=== PATIENT | female | born 1935 | race Caucasian/White ===

== ENCOUNTER → 2023-12-15 18:27 | Outpatient (REF) | payer OTHER, SELFPAY | LOC: MRI 18:27 | PROVIDERS: ATTENDING PHYSICIAN Pain Medicine Interventional Pain Medicine; FAMILY PHYSICIAN Family Medicine | DX: M54.16 Radiculopathy, lumbar region (principal) | CPT/HCPCS: 72148 ==

== ENCOUNTER → 2023-12-22 12:05 | Outpatient (REF) | payer OTHER, SELFPAY | LOC: RCS 12:05 | PROVIDERS: ATTENDING PHYSICIAN Pain Medicine Interventional Pain Medicine; FAMILY PHYSICIAN Family Medicine | DX: I48.0 Paroxysmal atrial fibrillation (principal) | CPT/HCPCS: 93005 ==

== ENCOUNTER 2024-05-07 18:11 | Inpatient (IN) | payer OTHER, SELFPAY ==
[2024-05-07] VITALS (12 sets, daily range): BP systolic 105–123; BP diastolic 44–72; BMI 27.9; BMI 26.9
--- NOTE | 2024-05-07 15:44 | ED.GENMED ---
History of Present Illness
General
Chief Complaint: Abnormal Lab Value
Time Seen by Provider: 05/07/24 15:06
History of Present Illness
History of Present Illness:
88-year-old female with history of A-fib on Coumadin, CHF, anemia on iron presenting to the emergency department for anemia. Patient had outpatient laboratory analysis, reportedly a hemoglobin of 5.5. Patient is an extremely limited historian
secondary to difficulty hearing. She does note some dyspnea, however unclear whether or not she has ever been transfused in the past. She denies any known blood in her stool. No additional history obtained at this time.
Past History
Past History
ED Past Medical History: Arrthythmia, HTN and Hypercholesterolemia
ED Past Surgical History: Orthopedic
Social History
Tobacco: Non-smoker
Alcohol: None
Personal:
Living: with family
Phy Exam
Physical Exam
Physical Exam:
General: Well-appearing, no clinical signs of dehydration, nontoxic and in no acute distress
HEENT: protecting airway
Neck: appears supple
CV: Normal heart rate, regular rhythm
Resp: No accessory muscle use, no increased work of breathing, lungs clear to auscultation bilaterally
Abd: Soft and non-distended, no tenderness to palpation
Extremities: No deformities, no swelling, no erythema, pulses and sensation intact
Neuro: alert, no focal neurologic deficit
: deferred
Rectal: Hemoccult positive dark stool
Psych: Normal affect
Skin: Intact
Course
Orders/Labs/Results
Orders:
Orders
05/07/24 15:22
Type+Screen Urgent
Complete Blood Count/With Diff Urgent
Comprehensive Metabolic Panel Urgent
05/07/24 15:24
PT/INR [Prothrombin Time] Urgent
05/07/24 16:11
* Blood Bank Products Urgent
Blood Bank Products: *Packed RBC Leuko(PRBC's)
Quantity: 1
Transfuse Today: Yes
Reason: Anemia
Other reason: bleeding
05/07/24 17:51
Admit/Transfer Patient As Directed
Co-Sign Provider:
Level of Care: Inpatient admission
Assign to:: Telemetry
Physician / Group: jermaine
Diagnosis: GI bleed
Reason for Telemetry: Arrhythmia
Date to Stop Telemetry: 05/10/24
Time to Stop Telemetry: 11:00
Reason for Hospitalization: Gi bleed
Expected length of stay greater than two midnights?: Yes
ELOS- Estimated Length of Stay in days: 3
I certify the patient meets the requirements for IP care: Yes
05/07/24 17:52
PRN Pain Medication Management As Directed
May give lesser potent ordered pain med per pt: Yes
preference::
Protocol:: Medication orders for pain may be administered in a
manner that supports deferring to patient preference
when the pt is:
- Requesting an ordered lesser potent pain medication.
Least to most potent pain medications are defined
as: acetaminophen < NSAID < tramadol < opioids
(morphine, oxycodone, hydromorphone).
- Requesting a lesser dose of the same medication IF
ORDERED.
- Requesting a less intrusive route of administration
if both routes are prescribed by the provider (PO <
IV).
05/07/24 17:53
Code Status As Directed
Resuscitation Status: Do not resuscitate
Reached after discussion with pt or family/Healthcare POA: Yes
05/07/24 17:54
DNR Bracelet Application ONCE
05/07/24 19:20
Ondansetron HCl [Zofran] 4 mg PO DAILYPRN PRN
05/07/24 20:19
Donepezil HCl [Aricept] 10 mg PO QPM
Ferrous Sulfate [Feosol] 325 mg PO QPM
Oxycodone [Roxicodone] 10 mg PO Q6HPRN PRN
Pantoprazole [Protonix IV] 40 mg IV DAILY
Potassium Chloride [KCl] 20 meq PO BID
05/07/24 20:19
Activity As Directed
Activity Level: As Tolerated
INT (Intravenous Needle Therapy) As Directed
Comment: Place 2 IV catheters of the largest bore possible until stable
Orthostatic Vital Signs As Directed
Orthostatic VS Frequency: Now
Comment: then every four hours for twenty-four hours
Pneumatic Compression Sleeves As Directed
Type: Thigh high
Vital Signs As Directed
Frequency: Per unit guidelines
DX Deep Vein Thrombosis Video Routine
05/07/24 21:00
Atorvastatin [Lipitor] 20 mg PO QPM
Furosemide [Lasix] 20 mg IV ONCE@2100 ONE
05/07/24 22:00
Acetaminophen [Tylenol] 1,000 mg PO TID
05/08/24 06:00
Basic Metabolic Panel IN AM
Complete Blood Count/No Diff IN AM
PT/INR [Prothrombin Time] IN AM
Levothyroxine [Synthroid] 125 mcg PO DAILY @ 0600
Occupational Therapy Consult [Ot Eval And Treat] IN AM
Physical Therapy Consult [Pt Eval And Treat] IN AM
Activity Level: As Tolerated
05/08/24 08:00
Diltiazem Extended Release [Cardizem Cd] 180 mg PO DAILY
Escitalopram Oxalate [Lexapro] 20 mg PO DAILY
Furosemide [Lasix] 20 mg PO DAILY
Metoprolol Xl [Toprol Xl] 25 mg PO DAILY
05/09/24 06:00
Basic Metabolic Panel IN AM
Complete Blood Count/No Diff IN AM
PT/INR [Prothrombin Time] IN AM
05/10/24 06:00
Basic Metabolic Panel IN AM
Complete Blood Count/No Diff IN AM
PT/INR [Prothrombin Time] IN AM
05/10/24 11:00
DC Protocol for Telemetry ONCE
05/11/24 06:00
Basic Metabolic Panel IN AM
Complete Blood Count/No Diff IN AM
PT/INR [Prothrombin Time] IN AM
05/12/24 06:00
Basic Metabolic Panel IN AM
Complete Blood Count/No Diff IN AM
PT/INR [Prothrombin Time] IN AM
Abnormal Lab Results
05/07/24 05/07/24
15:22 15:24
RBC 1.75 L 10^6/uL
(4.20-5.40)
Hgb 5.6 L* g/dL
(12.0-16.0)
Hct 18.2 L* %
(37.0-47.0)
MCV 104.0 H fL
(81.0-99.0)
MCH 32.0 H pg
(27.0-31.0)
MCHC 30.8 L g/dL
(33.0-37.0)
RDW 15.4 H %
(11.5-14.5)
Plt Count 112 L 10^3/uL
(130-400)
MPV 11.4 H fL
(7.4-10.4)
Absolute Lymphs (auto) 0.5 L 10^3/uL
(1.2-3.4)
Neutrophils % 84.0 H %
(42.2-75.2)
Lymphocytes % 9.8 L %
(20.5-51.1)
PT 35.8 H Sec
(11.4-14.6)
BUN 29 H mg/dl
(7-17)
Creatinine 1.2 H mg/dL
(0.6-1.0)
Glucose 168 H mg/dl
(70-99)
Total Protein 5.7 L g/dl
(6.3-8.2)
Crossmatch IS Only See Detail
05/07/24 15:22
05/07/24 15:22
Vital Signs
Initial and Last Documented VS:
Initial Vital Signs
Temp Pulse Resp BP Pulse Ox
98.9 F 71 18 107/44 100
05/07/24 15:03 05/07/24 15:03 05/07/24 15:03 05/07/24 15:03 05/07/24 15:03
Last Documented Vital Signs
Temp Pulse Resp BP Pulse Ox
98.5 F 74 18 113/57 100
05/07/24 22:49 05/07/24 22:49 05/07/24 22:49 05/07/24 22:49 05/07/24 22:49
MDM/Problems Addressed
MDM/Problems Addressed:
88-year-old female with history of anemia on anticoagulation on Coumadin presenting for outpatient hemoglobin of 5.5. Vital signs on arrival are normal.
On exam, patient is well-appearing, no acute distress. Benign cardiac, pulmonary, abdominal exam. However, on rectal exam, Hemoccult positive, dark stool. Concern for GI bleed. Will repeat laboratory analysis and assess need for transfusion with
suspected source of blood loss GI. Patient at this time however is hemodynamically stable.
16:50 - Patient's hemoglobin is 5.6. Will consent for blood and plan for transfusion as well as admission.
*Critical Care Note
Total Time (30-74mins, 75-104mins- exclusive of procedures): 36
comment:
The high probability of a clinically significant, sudden or life threatening deterioration, severe anemia with GI bleed, required my full and direct attention, intervention and personal management. The aggregate critical care time was 36 minutes.
This time is in addition to time spent performing reported procedures but includes the following:
[x] Data Review and interpretation
[x] Patient assessment and monitoring of vital signs
[x] Documentation
[x] Medication orders and management
ED Attending Note
-
Portions of this chart may have been created with voice recognition software.� Occasional wrong word or��sound alike� substitutions may have occurred due to the inherent limitations of voice recognition software.
Discharge Plan
Departure
Patient Disposition: Admit
Date of Disposition: 05/07/24
Time of Disposition: 16:24
Presentation/result/management discussed w/ accepting MD/DO: Hospitalist
Condition: Fair
Discharge Problem:
Symptomatic anemia, GI bleed
Interventions
Interventions:
*Risk Screen - Suicide Last Done: 05/07/24 15:03
*General Assessment Last Done: 05/07/24 15:03
*Neglect/Abuse Screening Last Done: 05/07/24 15:03
ED- Fall Risk Assessment Last Done: 05/07/24 15:11
*ED COVID-19 Vaccine History Last Done: 05/07/24 15:03
*Nursing Disposition Last Done: 05/07/24 20:12
Discharge Date and Time
Discharge Date/Time: 05/07/24 20:12
[2024-05-07 15:48] LABS: % Basophils 0.2 % (0-2); % Eosinophils 0.2 % (0-6); % Immature Granulocytes 0.4 % (0-0.5); % Lymphocytes 9.8 % (20.5-51.1); % Monocytes 5.4 % (1.7-9.3); Absolute Lymphocytes 0.5 10^3/uL (1.2-3.4); Absolute Monocytes 0.3 10^3/uL (0.1-0.6); Absolute Neutrophils 4.2 10^3/uL (1.4-6.5); Mean Corp Hgb Conc. 30.8 g/dL (33.0-37.0); Mean Platelet Volume 11.4 fL (7.4-10.4); Nucleated Red Blood Cells % 0 %; Platelet Count 112 10^3/uL (130-400); Red Blood Cell Count 1.75 10^6/uL (4.20-5.40); Red Cell Dist. Width 15.4 % (11.5-14.5)
[2024-05-07 15:49] LABS: INR 3.58; PT 35.8 Sec (11.4-14.6)
[2024-05-07 16:00] LABS: ALT (SGPT) < 10 U/L (0-35); AST (SGOT) 28 U/L (14-36); Albumin 3.6 g/dl (3.5-5.0); Alkaline Phosphatase 49 U/L (38-126); Blood Urea Nitrogen 29 mg/dl (7-17); Calcium 8.7 mg/dl (8.4-10.2); Carbon Dioxide 25 mmol/L (22-30); Chloride 98 mmol/L (98-107); Estimated Creatinine Clearance 31 ml/min; Glucose 168 mg/dl (70-99); Sodium 135 mmol/L (135-145); Total Protein 5.7 g/dl (6.3-8.2); eGFR 44.08
[2024-05-07 16:24] LABS: Hemoglobin 5.6 g/dL (12.0-16.0)
[2024-05-07 16:25] LABS: Hematocrit 18.2 % (37.0-47.0)
--- NOTE | 2024-05-07 17:20 | HPS.HSE ---
Addendum entered and electronically signed by Adal Lopez MD 05/07/24 18:14:
see update note for addendum
Original Note:
Family Physician
-
Family Physician: Jorge Patel
Chief Complaint
-
sob
nausea
History of Present Illness
88-year-old female with history of A-fib on Coumadin, CHF, anemia,AVM, diverticulitis, thrombocytopenia, right kidney tumor presented to us with anemia. for past few days, complaining of sob, which is worse with exertion. she is been complaining of
nausea for weeks. on Zofran for nausea at home. Patient denied headache, dizziness, syncopal episode. Patient denied fever, chills, chest pain.patient denied any abdominal pain, black stool, bloody diarrhea. Denied dysuria, hematuria. Patient
had outpatient laboratory analysis, reportedly a hemoglobin of 5.5.
Patient is already 2 units of PRBCs. Admitting for further management
family not sure of colonoscopy. patient not interested in aggressive therapy.
Medical History
Past Medical History
Past Medical History: Reports Other
Additional Past Medical History:
Paroxysmal A-fib
Kidney mass
type 2 diabetes
severe aortic stenosis
Hypertension
Spinal stenosis
Hypothyroidism depression anxiety
Right kidney tumor
Thrombocytopenia
AVM
Past Surgical History: Reports None and Other
Additional Past Surgical History:
Bilateral knee replacement
Parathyroid surgery
Bilateral cataract surgery
Social History
Tobacco: Non-smoker
Alcohol: None
Drug: None
Personal: Single
Living: With Family
Family History
Family History: Not pertinent
Allergies / Home Medications
Allergies reflects when Allergies were last updated in [facility].
Home Medications with original date entered in [facility]
Allergy/Medication List:
Allergies
Allergy/AdvReac Type Severity Reaction Status Date / Time
Sulfa (Sulfonamide Allergy Unknown Verified 05/07/24 15:03
Antibiotics)
Home Medications
donepezil 10 mg tablet (Aricept) 10 mg PO QPM Neurological Condition 12/27/22
escitalopram oxalate 20 mg tablet (Lexapro) 20 mg PO DAILY Depression 12/27/22
acetaminophen 500 mg tablet 1,000 mg PO TID Pain 03/30/23
ferrous sulfate 325 mg (65 mg iron) tablet 325 mg PO QPM Supplement 04/01/23
metoprolol succinate 25 mg tablet,extended release 24 hr 25 mg PO DAILY #30 tabs 04/05/23
naloxone 4 mg/actuation nasal spray 1 spray intranasal Q3MPRN PRN opioid overdose 04/20/23
oxycodone 10 mg tablet 10 mg PO Q6HPRN PRN moderate-severe pain 04/20/23
diltiazem HCl 180 mg capsule,extended release 24 hr 180 mg PO DAILY #0 caps 04/27/23
furosemide 20 mg tablet 20 mg PO DAILY #0 tabs 04/27/23
potassium chloride 20 mEq tablet,extended release(part/cryst) 20 meq PO BID #0 tabs 04/27/23
levothyroxine 125 mcg tablet 125 mcg PO DAILY 05/07/24
ondansetron HCl 4 mg tablet 4 mg PO DAILYPRN PRN nausea 05/07/24
simvastatin 40 mg tablet 40 mg PO QPM 05/07/24
warfarin 1 mg tablet 2 mg PO QPM 05/07/24
Review of Systems
-
Constitutional: Reports No Symptoms
EENT: Reports No Symptoms
Respiratory: Reports Trouble Breathing
Cardiac: Reports No Symptoms
Abdomen/GI: Reports Nausea
: Reports No Symptoms
Musculoskeletal: Reports No Symptoms
Skin: Reports No Symptoms
Neurological: Reports No Symptoms
Endocrine: Reports No Symptoms
Hematologic/Lymphatic: Reports No Symptoms
Psych: Reports No Symptoms
Physical Exam
Vital Signs
Vital Signs
Temp Pulse Resp BP Pulse Ox
98.7 F 86 18 107/70 98
05/07/24 17:10 05/07/24 17:10 05/07/24 17:10 05/07/24 17:10 05/07/24 17:10
Physical Exam
General: Well Developed, Well Nourished and No Apparent Distress
HEENT: NormoCephalic, Moist mucous membranes and Atraumatic
Respiratory: Clear
Cardiac: S1/S2 and Regular Rhythm; No Murmur or Rub
GI: Soft, Non Tender, Non Distended and Normal Bowel Sounds; No Organomegaly
Rectal: Deferred by Provider
Musculoskeletal: No Clubbing, No Cyanosis and No Edema
Skin: Rash and Other (Pale)
Neuro: AO x 3 and Nonfocal/grossly intact
Psych: Calm
Laboratory Results
-
05/07/24 15:22
05/07/24 15:22
Laboratory Results
PT 35.8 Sec (11.4-14.6) H 05/07/24 15:24
INR 3.58 05/07/24 15:24
Total Bilirubin 1.0 mg/dl (0.2-1.3) 05/07/24 15:22
AST 28 U/L (14-36) 05/07/24 15:22
ALT < 10 U/L (0-35) 05/07/24 15:22
Alkaline Phosphatase 49 U/L (38-126) 05/07/24 15:22
Data Reviewed
-
Lab Data: Labs Reviewed by me
Impression/Plan
-
# Acute on chronic anemia likely blood loss anemia
#acute hypoxic respiratory failure likely from anemia
# History of iron deficiency anemia
-Hemoglobin 5.6, stool is heme positive
-give one unit of blood due to severe
-Clear liquid diet for now
-GI consulted
-Trend hemoglobin
-Ferrous sulfate continued
-continue supplemental oxygen to keep sat >92
-wean as tolerated
# Acute kidney injury likely due to anemia
-Creatinine 1.1
-ctm
#Severe aortic stenosis.
-Echo with severe , LV EF >75%
-continue Lasix
-refused TAVR in the past
-Lasix 20 iv s/p one unit transfusion
# Chronic nausea
-On Zofran as needed
# Chronic pain
-Oxycodone continued
# Paroxysmal A-fib
-Rate controlled
--Hold Coumadin
-Continue metoprolol, Cardizem
-Monitor vital sign
#Dementia/depression/anxiety
-Aricept continued
-Citalopram continued
#Hypokalemia
� Monitor and replete
#Hyponatremia
� Stop hydrochlorothiazide
�Continue to monitor
#Hypothyroidism
� Levothyroxine continued
CODE STATUS DNR per patient and the family
DVT prophylaxis: scd
--- NOTE | 2024-05-07 18:14 | W.PN.UPDATE ---
Update Note
Progress Note Update
I saw and examined the patient.
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
Comment: 88 y/o F, hx of severe , thrombocytopenia, A. fib on Coumadin, hx of R kidney tumor presenting for symptomatic anemia of Hb 5.5, and slightly heme + stools. Also nausea. No other complaints. Patient being admitted for blood transfusion.
Declines EGD/Colonoscopy given advanced age, dementia. has previously declined TAVR.
Physical Exam
General: Well Developed, Well Nourished and No Apparent Distress
HEENT: Normocephalic, Moist mucous membranes and Atraumatic
Respiratory: Clear
Cardiac: S1/S2 and Regular Rhythm; No Murmur or Rub
GI: Soft, Non Tender, Non Distended and Normal Bowel Sounds; No Organomegaly
Rectal: Deferred by Provider
Musculoskeletal: No Clubbing, No Cyanosis and No Edema
Skin: Rash and Other (Pale)
Neuro: AO x 3 and Nonfocal/grossly intact
Psych: Calm
Acute blood loss anemia on chronic anemia, exacerbated by Coumadin
History of iron deficiency anemia
- transfuse 1 unit PRBC, with IV Lasix
- follow AM CBC for further PRBC
- Heme + stool, likely AVMs given hx of severe
- Family declines EGD/Colonoscopy given advanced age, dementia
Acute hypoxic respiratory insufficiency on 2L
- wean O2 as able
Acute kidney injury likely due to anemia
- Creatinine 1.1
- monitor BMP
Severe aortic stenosis
- Echo with severe , LV EF >75%
- continue Lasix
- refused TAVR in the past
- Lasix 20 iv s/p one unit transfusion
Chronic nausea
- in Zofran as needed
Chronic pain
- oxycodone continued
Paroxysmal A-fib
- rate controlled
- stop Coumadin
- continue metoprolol, Cardizem
- Monitor vital sign
Dementia/depression/anxiety
- Aricept continued
- citalopram continued
Hypokalemia
� Monitor and replete
Hyponatremia
� stop hydrochlorothiazide
� continue to monitor
Hypothyroidism
� levothyroxine continued
DVT ppx: SCDs
Code: Full
[2024-05-07] MEDS: ZOFRAN 4 MG PO (19:25)
[2024-05-07] MEDS: FEOSOL 325 MG PO (21:01)
[2024-05-07] MEDS: KCL 20 MEQ PO (21:01)
[2024-05-07] MEDS: ARICEPT 10 MG PO (21:01)
[2024-05-07] MEDS: LASIX 20 MG IV (21:02)
[2024-05-07] MEDS: TYLENOL 1000 MG PO (21:02)
[2024-05-07] MEDS: PROTONIX IV 40 MG IV (21:02)
[2024-05-07] MEDS: LIPITOR 20 MG PO (21:02)
[2024-05-07] MEDS: NSS (PRESERVATIVE FREE) 10 ML IV (21:02)
[2024-05-07] MEDS: ROXICODONE 10 MG PO (21:06)
[2024-05-08] VITALS (8 sets, daily range): BP systolic 84–148; BP diastolic 48–70; PULSE 80–91; BMI 26.8
[2024-05-08] MEDS: SYNTHROID 125 MCG PO (05:06)
[2024-05-08 07:01] LABS: INR 3.39; PT 34.2 Sec (11.4-14.6)
[2024-05-08 07:21] LABS: Blood Urea Nitrogen 27 mg/dl (7-17); Calcium 8.3 mg/dl (8.4-10.2); Carbon Dioxide 29 mmol/L (22-30); Chloride 100 mmol/L (98-107); Estimated Creatinine Clearance 31 ml/min; Glucose 86 mg/dl (70-99); Potassium 3.5 mmol/L (3.5-5.1); Sodium 137 mmol/L (135-145); eGFR 44.08
[2024-05-08 07:25] LABS: Hematocrit 18.8 % (37.0-47.0); Hemoglobin 6.1 g/dL (12.0-16.0); Mean Corp Hgb Conc. 32.4 g/dL (33.0-37.0); Mean Corpuscular Hgb 32.1 pg (27.0-31.0); Mean Corpuscular Volume 98.9 fL (81.0-99.0); Red Cell Dist. Width 18.4 % (11.5-14.5); White Blood Cell Count 4.4 10^3/uL (4.8-10.8)
[2024-05-08] MEDS: KCL 20 MEQ PO (10:17)
[2024-05-08] MEDS: LEXAPRO 20 MG PO (10:17)
[2024-05-08] MEDS: TOPROL XL 25 MG PO (10:17)
[2024-05-08] MEDS: CARDIZEM CD 180 MG PO (10:17)
[2024-05-08] MEDS: LASIX 20 MG PO (10:17)
[2024-05-08] MEDS: TYLENOL 1000 MG PO (10:17)
[2024-05-08] MEDS: NSS (PRESERVATIVE FREE) 10 ML IV (10:18)
[2024-05-08] MEDS: PROTONIX IV 40 MG IV (10:18)
--- NOTE | 2024-05-08 13:05 | CM ---
Patient seen bedside with daughter, Jeniffer, initial assessment completed by daughter as patient is hard of hearing. Patient resides with her son and daughter in law in a single story home, three steps to enter. Patient has a walker at home which she
uses at all times for ambulation. Patient currently on O2, is not on home O2. Patient denies VN, reports [facility] in past. Patient PCP Jorge Patel, pharmacy [facility] in [place], [facility] prescription coverage. CM will watch for PT/OT
evals and O2 needs. Will continue to follow for all discharge planning needs.
Plan; will depend on further medical eval, watch PT recommendations.
--- NOTE | 2024-05-08 13:48 | W.PN.HOSP.TC ---
Today's Communication/Plan
-
repeat Hb at 4pm; if <7 then continue hospitalization and if >7 family ok with dc as they plan to transition to home hospice outpatient soon.
d/w RN and family
Assessment / Plan
Assessment / Plan
Assessment:
Acute blood loss anemia on chronic anemia, exacerbated by Coumadin
History of iron deficiency anemia
- Heme + stool, likely AVMs given hx of severe
- transfuse 2nd PRBC and repeat Hb at 4pm; if <7 then continue hospitalization and if >7 family ok with dc as they plan to transition to home hospice outpatient soon.
- Family declines EGD/Colonoscopy given advanced age, dementia
Acute hypoxic respiratory insufficiency on 2L
- wean O2 as able
Acute kidney injury likely due to anemia
- Creatinine 1.1
- monitor BMP
Severe aortic stenosis
- Echo with severe , LV EF >75%
- continue Lasix
- refused TAVR in the past
Chronic nausea
- in Zofran as needed
Chronic pain
- oxycodone continued
Paroxysmal A-fib
- rate controlled
- stop Coumadin; give Vit K
- continue metoprolol, Cardizem
- Monitor vital sign
Dementia/depression/anxiety
- Aricept continued
- citalopram continued
Hypokalemia
� Monitor and replete
Hyponatremia
� stop hydrochlorothiazide
� continue to monitor
Hypothyroidism
� levothyroxine continued
DVT ppx: SCDs
Code: Full
Anticipated Discharge: Today
Subjective/Interval History
-
Date of Service: May 08, 2024
no new complaints
Hb 6.1 today after 1 unit; 1 further unit transfusing
Objective Data
-
Labs:
Laboratory Results
05/08/24
05:07
WBC 4.4 L
Hgb 6.1 L*
Hct 18.8 L*
Plt Count
PT 34.2 H
INR 3.39
Sodium 137
Potassium 3.5
Chloride 100
Carbon Dioxide 29
BUN 27 H
Creatinine 1.2 H
Glucose 86
Calcium 8.3 L
Vital Signs:
Vital Signs
Temp Pulse Resp BP Pulse Ox
98.2 F 60 14 113/62 97
05/08/24 13:01 05/08/24 13:01 05/08/24 13:01 05/08/24 13:01 05/08/24 12:48
I&O
05/07/24 05/08/24 05/09/24
06:59 06:59 06:59
Intake Total 490 / 490 0 / 0
Balance 490 / 490 0 / 0
Physical Exam
-
General: No Apparent Distress
HEENT: Normocephalic and Atraumatic
Respiratory: Negative Wheezes
Cardiac: Regular Rhythm, S1/S2 and Murmur
GI: Soft
Genito-urinary: No Costovertebral Tender
Neuro: AO x 3
Psych: Calm
Data Reviewed
-
Total Time Spent with Patient (in minutes): 44
Labs: Labs Reviewed by me
[2024-05-08] MEDS: MEPHYTON 5 MG PO (14:53)
[2024-05-08] MEDS: LASIX 20 MG IV (14:53)
[2024-05-08] MEDS: ROXICODONE 10 MG PO (14:58)
[2024-05-08] MEDS: TYLENOL PO (16:00)
[2024-05-08 17:22] LABS: Hematocrit 24.4 % (37.0-47.0)
--- NOTE | 2024-05-09 13:53 | W.DS.TRANS ---
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
-
Discharge Instructions:
Sleep Apnea Risk Low
Discharge Diagnosis/Procedures GI bleed, symptomatic anemia
Diet Regular
Activity As tolerated
Other Services Hospice
Instructions:
Stand-Alone Forms:
Changes to Home Medications: Yes
Discharge Medications:
DC Medications w/original date entered in [employer]
donepezil 10 mg tablet (Aricept) 10 mg PO QPM Neurological Condition 12/27/22
escitalopram oxalate 20 mg tablet (Lexapro) 20 mg PO DAILY Depression 12/27/22
acetaminophen 500 mg tablet 1,000 mg PO TID Pain 03/30/23
ferrous sulfate 325 mg (65 mg iron) tablet 325 mg PO QPM Supplement 04/01/23
metoprolol succinate 25 mg tablet,extended release 24 hr 25 mg PO DAILY #30 tabs 04/05/23
naloxone 4 mg/actuation nasal spray 1 spray intranasal Q3MPRN PRN opioid overdose 04/20/23
oxycodone 10 mg tablet 10 mg PO Q6HPRN PRN moderate-severe pain 04/20/23
diltiazem HCl 180 mg capsule,extended release 24 hr 180 mg PO DAILY #0 caps 04/27/23
furosemide 20 mg tablet 20 mg PO DAILY #0 tabs 04/27/23
potassium chloride 20 mEq tablet,extended release(part/cryst) 20 meq PO BID #0 tabs 04/27/23
levothyroxine 125 mcg tablet 125 mcg PO DAILY 05/07/24
ondansetron HCl 4 mg tablet 4 mg PO DAILYPRN PRN nausea 05/07/24
simvastatin 40 mg tablet 40 mg PO QPM 05/07/24
Home Medication Changes
Coumadin stopped
Pending Results: No
Total time spent discharging patient (in min): 41
== END 2024-05-08 17:55 | disposition home or self-care (01) | DRG 812 ==
LOC: 4 WEST ACU 18:11
PROVIDERS: Registered Nurse; ADMITTING PHYSICIAN Internal Medicine; EMERGENCY PHYSICIAN Student in an Organized Health Care Education/Training Program; FAMILY PHYSICIAN Family Medicine
PROC: 30233N1 Transfusion of Nonautologous Red Blood Cells into Peripheral Vein, Percutaneous Approach (ICD-10-PCS; 2024-05-07)
DX: D62 Acute posthemorrhagic anemia (principal); D68.32 Hemorrhagic disorder due to extrinsic circulating anticoagulants; E87.1 Hypo-osmolality and hyponatremia; F03.93 Unspecified dementia, unspecified severity, with mood disturbance; F03.94 Unspecified dementia, unspecified severity, with anxiety; N17.9 Acute kidney failure, unspecified; K92.1 Melena; Z66 Do not resuscitate; T45.515A Adverse effect of anticoagulants, initial encounter; I48.0 Paroxysmal atrial fibrillation; I11.0 Hypertensive heart disease with heart failure; I50.9 Heart failure, unspecified; E78.00 Pure hypercholesterolemia, unspecified; D69.6 Thrombocytopenia, unspecified; E03.9 Hypothyroidism, unspecified; D50.9 Iron deficiency anemia, unspecified; R06.89 Other abnormalities of breathing; R09.02 Hypoxemia; E87.6 Hypokalemia; E11.9 Type 2 diabetes mellitus without complications; G89.29 Other chronic pain; N28.89 Other specified disorders of kidney and ureter; M48.00 Spinal stenosis, site unspecified; I35.0 Nonrheumatic aortic (valve) stenosis; Z96.653 Presence of artificial knee joint, bilateral; Z79.890 Hormone replacement therapy; Z79.01 Long term (current) use of anticoagulants
CPT/HCPCS: 71045; 80048; 80053; 85014; 85018; 85025; 85027; 85610; 86850; 86900; 86901; 86920; 99291; P9016